=== PATIENT | female | born 1990 | race Caucasian/White ===

== ENCOUNTER 2016-12-08 07:37 | Day surgery (SDC) | payer MEDICARE, MEDICAID ==
[2016-12-08] MEDS ORDERED: Dextrose 5%-Lactated Ringers 1,000 ML IV SCH (08:00)
[2016-12-08] MEDS ORDERED: Glycopyrrolate 0.2 MG/ML 2 ML SYRINGE IVPUSH ONE (09:00)
[2016-12-08] MEDS ORDERED: Propofol 200 MG/20 ML SDV ONE (09:12)
[2016-12-08] MEDS ORDERED: fentaNYL 100 MCG/2 ML SDV ONE (09:12)
[2016-12-08] MEDS ORDERED: Midazolam 1 MG/ML 2 ML SDV ONE (09:12)
[2016-12-08] MEDS ORDERED: Pantoprazole 40 MG Vial IVPUSH ONE (10:50)
[2016-12-08 11:54] VITALS: BP 123/79
--- NOTE | 2016-12-10 17:25 | OR ---
DATE OF PROCEDURE: 12/08/2016 PREOPERATIVE DIAGNOSIS: Persistent nausea. POSTOPERATIVE DIAGNOSIS: Nausea associated with focal intense gastritis involving gastric body. OPERATIVE PROCEDURE: Upper GI endoscopy with biopsies of gastric antrum for CLOtest. ANESTHESIA: IV sedation. INDICATION FOR PROCEDURE: This is a 26-year-old female presenting with some ongoing nausea. This does not appear to be related to food intake, and the patient is not noted to have any secretory medications being taken. The plan is to proceed with upper GI endoscopy with biopsies as indicated. Potential risks including bleeding and perforation were discussed, and the patient wishes to proceed. DETAILS OF PROCEDURE: The patient was taken to the operating room and placed in a left lateral decubitus position. IV sedation was administered, after which the upper GI endoscope was passed orally through the length of the esophagus and into the stomach with retroflexion view of the fundus, and thereafter through the pyloric channel and into the proximal duodenum. Findings included normal hypopharynx, larynx, upper esophageal sphincter, and esophageal body. At the EG junction, no significant inflammation was noted nor was there any significant hiatal hernia. In the stomach, there were a few streaks of blood and within the body, there was a focal area of quite intense gastritis. This was not ulcerated, but it was reddened and quite friable. In general, there was less intense diffuse gastritis within the distal body and antrum. The pyloric channel and duodenum at the junction of the 3rd and 4th portions were unremarkable. At this point, biopsies were taken from the antrum and sent for CLOtest for H. pylori. Minimal bleeding from the biopsy site was seen and the procedure then concluded with removal of the scope. The patient will be given Protonix 40 mg given IV in the recovery room and then 40 mg daily, and she will be instructed to follow up with Keira Gillis at [facility] in 2 weeks. If the patient remains nauseated at this point, I would probably initiate a gallbladder workup perhaps starting with an ultrasound, and if that is negative, proceeding with a CCK-stimulated HIDA scan. Liu Leal MD /[id number]
== END 2016-12-08 12:00 | disposition home or self-care (01) ==
LOC: JP.SDS 07:37
PROVIDERS: ATTEND Surgery
DX: K29.50 Unspecified chronic gastritis without bleeding (principal); E78.5 Hyperlipidemia, unspecified; E66.9 Obesity, unspecified; Z88.8 Allergy status to other drugs, medicaments and biological substances; Z79.899 Other long term (current) drug therapy
CPT/HCPCS: 43239; 87081; C9113; J2250; J2704; J3010; J7042

== ENCOUNTER 2017-04-23 01:59 | Emergency (ER) | payer MEDICAID, MEDICARE, OTHER ==
[2017-04-23 02:24] VITALS: BP 134/95
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
== END 2017-04-23 04:07 | disposition home or self-care (01) ==
LOC: JP.ED 01:59
DX: T76.21XA Adult sexual abuse, suspected, initial encounter (principal); H54.7 Unspecified visual loss; J45.909 Unspecified asthma, uncomplicated; E66.9 Obesity, unspecified; F41.9 Anxiety disorder, unspecified; F31.9 Bipolar disorder, unspecified; Z88.8 Allergy status to other drugs, medicaments and biological substances; Z88.1 Allergy status to other antibiotic agents; Z79.899 Other long term (current) drug therapy; Z87.440 Personal history of urinary (tract) infections
CPT/HCPCS: 36415; 81001; 81025; 86593; 86701; 86702; 86780; 86803; 87210; 87340; 87491; 87591; 99285

== ENCOUNTER 2017-05-27 21:34 | Emergency (ER) | payer MEDICARE, MEDICAID ==
[2017-05-27 21:52] VITALS: BP 143/69
[2017-05-27] MEDS ORDERED: Sodium Chloride 0.9% 1,000 ML IV SCH (22:45)
[2017-05-27] MEDS ORDERED: Sodium Chloride 0.9% 10 ML Syringe FLUSH PRN (22:45)
[2017-05-27] MEDS ORDERED: diphenhydrAMINE 50 MG/ML SDV IVPUSH ONE (22:45)
[2017-05-27] MEDS ORDERED: Prochlorperazine 10 MG/2 ML SDV IVPUSH ONE (22:45)
[2017-05-27] MEDS ORDERED: HYDROmorphone 1 MG/ML Syringe IVPUSH ONE (22:46)
--- NOTE | 2017-05-27 22:51 | EDM.PDOC ---
ED HPI GENERAL MEDICAL PROBLEM - General Chief Complaint: Headache Stated Complaint: MIGRAINE Time Seen by Provider: 05/27/17 22:34 Source of Information: Reports: Patient History Limitations: Reports: No Limitations - History of Present Illness INITIAL COMMENTS - FREE TEXT/NARRATIVE: This patient comes in complaining of a severe headache. It's been going on for the last 6 days. This is similar to headaches she's had in the past. She has not vomited but feels very nauseated. She describes the pain as 10 out of 10. She said usually she gets headaches about every day but this one is just much worse. And she has had headaches like this in the past migraine Pain Score (Numeric/FACES): 8 - Related Data Allergies Allergy/AdvReac Type Severity Reaction Status Date / Time bupropion [From Wellbutrin] Allergy Seizure Verified 12/08/16 07:52 cephalexin monohydrate Allergy Hives Verified 12/08/16 07:52 [From Keflex] niacin Allergy Hives Verified 12/08/16 07:52 Home Meds: Home Meds Multivitamin [Multi Vitamin Daily] 1 cap PO DAILY 07/10/13 [History] Ondansetron [Zofran ODT] 4 mg PO Q6H PRN #8 tab.dis 07/10/13 [Rx] QUEtiapine [SEROquel] 200 mg PO BEDTIME 07/10/13 [History] Vitamin E [Formula E] 400 unit PO BEDTIME 07/10/13 [History] Cholecalciferol (Vitamin D3) [Vitamin D3] 5,000 unit PO BEDTIME 10/12/15 [ History] FLUoxetine [PROzac] 20 mg PO DAILY 10/12/15 [History] Levonorgestrel-Ethin Estradiol [Lessina] 1 each PO DAILY 10/12/15 [History] Montelukast Sodium [Singulair] 5 mg PO BEDTIME 05/21/16 [History] Melatonin 10 mg PO BEDTIME 12/06/16 [History] Naproxen [Take Home: Naproxen 500 MG, 4 Tab Pack] 500 mg PO BID 12/06/16 [ History] Vitamin B Complex [B Complex] 1 each PO BEDTIME 12/06/16 [History] Iron 65 mg PO BEDTIME 12/08/16 [History] Levonorgestrel-Ethin Estradiol [Lutera-28 Tablet] 1 tab PO BEDTIME 12/08/16 [ History] QUEtiapine [SEROquel] 200 mg PO BEDTIME 12/08/16 [History] Topiramate [Topiramate ER] 50 mg PO BEDTIME 12/08/16 [History] Past Medical History HEENT History: Reports: Impaired Vision Respiratory History: Reports: Asthma Gastrointestinal History: Reports: None Genitourinary History: Reports: UTI, Recurrent 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 History: Reports: 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 Uterine Bleeding, Other (See Below) Other OB/BYN History: ablation for heavy periods Musculoskeletal History: Reports: Fracture, Other (See Below) Other Musculoskeletal History: bunions Neurological History: Reports: Concussion, Headaches, Chronic, Seizure Psychiatric History: Reports: Anxiety, Bipolar, Depression, Developmental Delay , Panic Attack Endocrine/Metabolic History: Reports: Obesity/BMI 30+ Immunologic History: Reports: None Oncologic (Cancer) History: Reports: None Dermatologic History: Reports: Eczema, Other (See Below) Other Dermatologic History: acne - Infectious Disease History Infectious Disease History: Reports: None - Past Surgical History Head Surgeries/Procedures: Reports: None Respiratory Surgical History: Reports: None Female Surgical History: Reports: Other (See Below) Endocrine Surgical History: Reports: None Musculoskeletal Surgical History: Reports: Other (See Below) Dermatological Surgical History: Reports: Other (See Below) Social & Family History - Family History Family Medical History: Noncontributory - Tobacco Use Smoking Status *Q: Never Smoker Second Hand Smoke Exposure: No - Caffeine Use Caffeine Use: Reports: Coffee, Energy Drinks, Soda - Alcohol Use Days Per Week of Alcohol Use: 2 Number of Drinks Per Day: 2 Total Drinks Per Week: 4 - Recreational Drug Use Recreational Drug Use: No - Living Situation & Occupation Living situation: Reports: Single Occupation: Employed (lives alone with cat [address] in [place], [place]. works at [employer]) ED ROS GENERAL - Review of Systems Review Of Systems: ROS reveals no pertinent complaints other than HPI. - Physical Exam Exam: See Below Exam Limited By: No Limitations General Appearance: Alert, WD/WN, Mild Distress Eye Exam: Bilateral Eye: EOMI, PERRL Ears: Normal External Exam Throat/Mouth: Normal Inspection Head Exam: Atraumatic Neck: Normal Inspection Respiratory/Chest: Lungs Clear Cardiovascular: Regular Rate, Rhythm GI/Abdominal: Non-Tender Neuro Exam (Abbreviated): Alert, Oriented, CN II-XII Intact, Normal Cognition, No Motor/Sensory Deficits Extremities: Normal Inspection Psychiatric: Normal Affect Skin Exam: Warm, Dry Course - Vital Signs Last Recorded V/S: Last Vital Signs Temp 37.4 C 05/27/17 21:53 Pulse 97 05/27/17 21:53 Resp 16 05/27/17 21:53 BP 143/69 H 05/27/17 21:53 Pulse Ox 96 05/27/17 21:53 - Orders/Labs/Meds Orders: Active Orders 24 hr Category Date Time Status Sodium Chloride 0.9% [Normal Saline] 1,000 ml Med 05/27/17 22:45 Active IV ASDIRECTED Sodium Chloride 0.9% [Saline Flush] Med 05/27/17 22:45 Active 10 ml FLUSH ASDIRECTED PRN Saline Lock Insert [OM.PC] Urgent Oth 05/27/17 22:45 Ordered Medication Orders Sodium Chloride (Normal Saline) 1,000 mls @ 999 mls/hr IV ASDIRECTED TRAVIS Last Admin: 05/27/17 23:02 Dose: 999 mls/hr Sodium Chloride (Saline Flush) 10 ml FLUSH ASDIRECTED PRN PRN Reason: Keep Vein Open Last Admin: 05/27/17 23:09 Dose: 10 ml Meds: Medications Generic Name Dose Route Start Last Admin Trade Name Freq PRN Reason Stop Dose Admin Sodium Chloride 1,000 mls @ 999 mls/hr 05/27/17 22:45 05/27/17 23:02 Normal Saline IV 999 mls/hr ASDIRECTED TRAVIS Administration Sodium Chloride 10 ml 05/27/17 22:45 05/27/17 23:09 Saline Flush FLUSH 10 ml ASDIRECTED PRN Administration Keep Vein Open Discontinued Medications Generic Name Dose Route Start Last Admin Trade Name Freq PRN Reason Stop Dose Admin Diphenhydramine HCl 25 mg 05/27/17 22:45 05/27/17 23:04 Benadryl IVPUSH 05/27/17 22:46 25 mg ONETIME ONE Administration Hydromorphone HCl 1 mg 05/27/17 22:46 05/27/17 23:07 Dilaudid IVPUSH 05/27/17 22:47 1 mg ONETIME ONE Administration Prochlorperazine Edisylate 10 mg 05/27/17 22:45 05/27/17 23:06 Compazine IVPUSH 05/27/17 22:46 10 mg ONETIME ONE Administration - Re-Assessments/Exams Free Text/Narrative Re-Assessment/Exam: 05/28/17 00:09 This patient received 1 L IV normal saline Compazine 10 mg plus Benadryl 25 mg IV and Dilaudid 1 mg IV. After the fluids were in she had gotten good relief from her headache. Departure - Departure Time of Disposition: 00:09 Disposition: Home, Self-Care 01 Condition: Fair Clinical Impression: Migraine - Discharge Information Referrals: Keira Gillis PA [Primary Care Provider] - Forms: ED Department Discharge Additional Instructions: Go home and go straight to bed and get a good night sleep. The medication he received will make you very sleepy. This will last at least 12 hours so don't plan to do anything for at least the next 12 hours were sedation could be a problem. - My Orders Last 24 Hours: My Active Orders 05/27/17 22:45 Sodium Chloride 0.9% [Normal Saline] 1,000 ml IV ASDIRECTED Sodium Chloride 0.9% [Saline Flush] 10 ml FLUSH ASDIRECTED PRN Saline Lock Insert [OM.PC] Urgent - Assessment/Plan Last 24 Hours: My Active Orders 05/27/17 22:45 Sodium Chloride 0.9% [Normal Saline] 1,000 ml IV ASDIRECTED Sodium Chloride 0.9% [Saline Flush] 10 ml FLUSH ASDIRECTED PRN Saline Lock Insert [OM.PC] Urgent
== END 2017-05-28 00:12 | disposition home or self-care (01) ==
LOC: JP.ED 21:34
DX: G43.909 Migraine, unspecified, not intractable, without status migrainosus (principal); J45.909 Unspecified asthma, uncomplicated; E66.9 Obesity, unspecified; F41.9 Anxiety disorder, unspecified; F31.9 Bipolar disorder, unspecified; Z87.440 Personal history of urinary (tract) infections; Z79.899 Other long term (current) drug therapy; Z88.1 Allergy status to other antibiotic agents; Z88.8 Allergy status to other drugs, medicaments and biological substances
CPT/HCPCS: 96361; 96374; 96375; 99283; J0780; J1170; J1200; J7040; J7050

== ENCOUNTER 2017-06-01 17:42 | Emergency (ER) | payer MEDICARE, MEDICAID ==
[2017-06-01 18:11] VITALS: BP 152/92
[2017-06-01] MEDS ORDERED: Sodium Chloride 0.9% 10 ML Syringe FLUSH PRN (18:57)
[2017-06-01] MEDS ORDERED: Ketorolac 30 MG/ML SDV IVPUSH ONE (18:57)
[2017-06-01] MEDS ORDERED: diphenhydrAMINE 50 MG/ML SDV IVPUSH ONE (18:57)
[2017-06-01] MEDS ORDERED: Sodium Chloride 0.9% 1,000 ML IV ONE (18:57)
[2017-06-01] MEDS ORDERED: Prochlorperazine 10 MG/2 ML SDV IVPUSH ONE (18:57)
--- NOTE | 2017-06-01 19:01 | EDM.PDOC ---
ED HPI GENERAL MEDICAL PROBLEM - General Chief Complaint: Headache Stated Complaint: MIGRAINE Time Seen by Provider: 06/01/17 18:50 Source of Information: Reports: Patient, Old Records, RN Notes Reviewed History Limitations: Reports: No Limitations - History of Present Illness INITIAL COMMENTS - FREE TEXT/NARRATIVE: 26-year-old female presents emergency department day complaint of headache, she states she has a history of migraines is only using Excedrin for an abortive medication and Topamax for preventative medication she was evaluated in the emergency department 5 days prior with a similar complaint treatment at that time did bring some resolution to her headache but it has returned she's been dealing with this headache on and off now for about 2 weeks, she has photophobia and nausea - Related Data Allergies Allergy/AdvReac Type Severity Reaction Status Date / Time bupropion [From Wellbutrin] Allergy Seizure Verified 12/08/16 07:52 cephalexin monohydrate Allergy Hives Verified 12/08/16 07:52 [From Keflex] niacin Allergy Hives Verified 12/08/16 07:52 Home Meds: Home Meds Multivitamin [Multi Vitamin Daily] 1 cap PO DAILY 07/10/13 [History] Ondansetron [Zofran ODT] 4 mg PO Q6H PRN #8 tab.dis 07/10/13 [Rx] QUEtiapine [SEROquel] 200 mg PO BEDTIME 07/10/13 [History] Vitamin E [Formula E] 400 unit PO BEDTIME 07/10/13 [History] Cholecalciferol (Vitamin D3) [Vitamin D3] 5,000 unit PO BEDTIME 10/12/15 [ History] FLUoxetine [PROzac] 20 mg PO DAILY 10/12/15 [History] Levonorgestrel-Ethin Estradiol [Lessina] 1 each PO DAILY 10/12/15 [History] Montelukast Sodium [Singulair] 5 mg PO BEDTIME 05/21/16 [History] Melatonin 10 mg PO BEDTIME 12/06/16 [History] Naproxen [Take Home: Naproxen 500 MG, 4 Tab Pack] 500 mg PO BID 12/06/16 [ History] Vitamin B Complex [B Complex] 1 each PO BEDTIME 12/06/16 [History] Iron 65 mg PO BEDTIME 12/08/16 [History] Levonorgestrel-Ethin Estradiol [Lutera-28 Tablet] 1 tab PO BEDTIME 12/08/16 [ History] QUEtiapine [SEROquel] 200 mg PO BEDTIME 12/08/16 [History] Topiramate [Topiramate ER] 50 mg PO BEDTIME 12/08/16 [History] Past Medical History HEENT History: Reports: Impaired Vision Respiratory History: Reports: Asthma Genitourinary History: Reports: UTI, Recurrent 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: 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 Uterine Bleeding, Other (See Below) Other OB/BYN History: ablation for heavy periods Musculoskeletal History: Reports: Fracture, Other (See Below) Other Musculoskeletal History: bunions Neurological History: Reports: Concussion, Headaches, Chronic, Seizure Psychiatric History: Reports: Anxiety, Bipolar, Depression, Developmental Delay , Panic Attack Endocrine/Metabolic History: Reports: Obesity/BMI 30+ Immunologic History: Reports: None Oncologic (Cancer) History: Reports: None Dermatologic History: Reports: Eczema, Other (See Below) Other Dermatologic History: acne - Infectious Disease History Infectious Disease History: Reports: None - Past Surgical History Head Surgeries/Procedures: Reports: None Respiratory Surgical History: Reports: None Female Surgical History: Reports: Other (See Below) Endocrine Surgical History: Reports: None Musculoskeletal Surgical History: Reports: Other (See Below) Dermatological Surgical History: Reports: Other (See Below) Social & Family History - Family History Family Medical History: Noncontributory - Tobacco Use Smoking Status *Q: Never Smoker Second Hand Smoke Exposure: No - Caffeine Use Caffeine Use: Reports: None - Alcohol Use Days Per Week of Alcohol Use: 2 Number of Drinks Per Day: 2 Total Drinks Per Week: 4 - Recreational Drug Use Recreational Drug Use: No - Living Situation & Occupation Living situation: Reports: Single Occupation: Employed (lives alone with cat at [address] in [place], [place]. works at [employer]) ED ROS GENERAL - Review of Systems Review Of Systems: See Below Constitutional: Reports: No Symptoms HEENT: Reports: Other (Photophobia) Respiratory: Reports: No Symptoms Cardiovascular: Reports: No Symptoms GI/Abdominal: Reports: Nausea Musculoskeletal: Reports: No Symptoms Skin: Reports: No Symptoms Neurological: Reports: Headache - Physical Exam Exam: See Below Exam Limited By: No Limitations General Appearance: Alert, WD/WN, No Apparent Distress Eye Exam: Bilateral Eye: Normal Fundi, Normal Inspection Ears: Normal External Exam Nose: Normal Inspection Throat/Mouth: Normal Inspection Head Exam: Atraumatic, Normocephalic Neck: Normal Inspection, Supple, Non-Tender, Full Range of Motion Course - Vital Signs Last Recorded V/S: Last Vital Signs Temp 99 F 06/01/17 18:31 Pulse 107 H 06/01/17 18:31 Resp 18 06/01/17 18:31 BP 152/92 H 06/01/17 18:31 Pulse Ox 93 L 06/01/17 18:31 - Orders/Labs/Meds Orders: Active Orders 24 hr Category Date Time Status Peripheral IV Care [RC] . DIRECTED Care 06/01/17 18:57 Active Sodium Chloride 0.9% [Saline Flush] Med 06/01/17 18:57 Active 10 ml FLUSH ASDIRECTED PRN Peripheral IV Insertion Adult [OM.PC] Urgent Oth 06/01/17 18:57 Ordered Medication Orders Sodium Chloride (Saline Flush) 10 ml FLUSH ASDIRECTED PRN PRN Reason: Keep Vein Open Last Admin: 06/01/17 19:13 Dose: 10 ml Meds: Medications Generic Name Dose Route Start Last Admin Trade Name Freq PRN Reason Stop Dose Admin Sodium Chloride 10 ml 06/01/17 18:57 06/01/17 19:13 Saline Flush FLUSH 10 ml ASDIRECTED PRN Administration Keep Vein Open Discontinued Medications Generic Name Dose Route Start Last Admin Trade Name Freq PRN Reason Stop Dose Admin Diphenhydramine HCl 50 mg 06/01/17 18:57 06/01/17 19:15 Benadryl IVPUSH 06/01/17 18:58 50 mg ONETIME ONE Administration Sodium Chloride 1,000 mls @ 999 mls/hr 06/01/17 18:57 06/01/17 19:14 Normal Saline IV 06/01/17 19:57 999 mls/hr .BOLUS ONE Administration Ketorolac Tromethamine 30 mg 06/01/17 18:57 06/01/17 19:14 Toradol IVPUSH 06/01/17 18:58 30 mg ONETIME ONE Administration Prochlorperazine Edisylate 5 mg 06/01/17 18:57 06/01/17 19:15 Compazine IVPUSH 06/01/17 18:58 5 mg ONETIME ONE Administration Departure - Departure Time of Disposition: 20:35 Disposition: Home, Self-Care 01 Condition: Good Clinical Impression: Migraine - Discharge Information Referrals: Keira Gillis PA [Primary Care Provider] - Forms: ED Department Discharge Additional Instructions: Use the migraine medication as needed with the start of a migraine, Please followup with your primary care provider in 3-5 days if not better, please call return to the emergency department with worsening of symptoms. - My Orders Last 24 Hours: My Active Orders 06/01/17 18:57 Peripheral IV Care [RC] . DIRECTED Sodium Chloride 0.9% [Saline Flush] 10 ml FLUSH ASDIRECTED PRN Peripheral IV Insertion Adult [OM.PC] Urgent - Assessment/Plan Last 24 Hours: My Active Orders 06/01/17 18:57 Peripheral IV Care [RC] . DIRECTED Sodium Chloride 0.9% [Saline Flush] 10 ml FLUSH ASDIRECTED PRN Peripheral IV Insertion Adult [OM.PC] Urgent Plan: Assessment Acuity = acute Site and laterality = migraine type headache Etiology = unclear etiology Manifestations = none Location of injury = Home Lab values = none Plan She had excellent improvement combination lactated Ringer's, Benadryl, Toradol and Compazine, prescription written for Imitrex 25 mg 1 tablet as needed for migraine, her follow-up with her primary care 3-5 days for reevaluation Patient was in agreement with the plan all questions were answered, they were instructed to return to the emergency department or call for worsening symptoms. This note was dictated using I[employer] voice recognition software please call with any questions.
== END 2017-06-01 20:44 | disposition home or self-care (01) ==
LOC: JP.ED 17:42
DX: G43.909 Migraine, unspecified, not intractable, without status migrainosus (principal); J45.909 Unspecified asthma, uncomplicated; F31.9 Bipolar disorder, unspecified; E66.9 Obesity, unspecified; Z68.39 Body mass index [BMI] 39.0-39.9, adult; Z87.440 Personal history of urinary (tract) infections; Z79.899 Other long term (current) drug therapy; Z88.1 Allergy status to other antibiotic agents; Z88.8 Allergy status to other drugs, medicaments and biological substances
CPT/HCPCS: 96361; 96374; 96375; 99284; J0780; J1200; J1885; J7040; J7050; 99283

== ENCOUNTER 2017-06-25 17:43 | Emergency (ER) | payer MEDICARE, MEDICAID ==
[2017-06-25 18:52] VITALS: BP 134/86
--- NOTE | 2017-06-25 19:02 | EDM.PDOC ---
ED HPI GENERAL MEDICAL PROBLEM - General Chief Complaint: Respiratory Problem Stated Complaint: COUGHING,VOMITING Time Seen by Provider: 06/25/17 18:58 Source of Information: Reports: Patient History Limitations: Reports: No Limitations - History of Present Illness INITIAL COMMENTS - FREE TEXT/NARRATIVE: With cough x 2 weeks. Now with sore throat, cough. With fever intermittently. Throwing up from coughing so hard. Has noted wheezing today. Does not smoke. Does have inhaler at home. Not using it. Cough seems worse at night. Onset: Gradual Onset Date: 06/11/17 Duration: Intermittent Severity: Mild Improves with: Reports: None Worsens with: Reports: None Associated Symptoms: Reports: Cough, Fever/Chills, Nausea/Vomiting - Related Data Allergies Allergy/AdvReac Type Severity Reaction Status Date / Time bupropion [From Wellbutrin] Allergy Seizure Verified 06/25/17 18:40 cephalexin monohydrate Allergy Hives Verified 06/25/17 18:40 [From Keflex] niacin Allergy Hives Verified 06/25/17 18:40 Home Meds: Home Meds Multivitamin [Multi Vitamin Daily] 1 cap PO DAILY 07/10/13 [History] Ondansetron [Zofran ODT] 4 mg PO Q6H PRN #8 tab.dis 07/10/13 [Rx] Vitamin E [Formula E] 400 unit PO BEDTIME 07/10/13 [History] Cholecalciferol (Vitamin D3) [Vitamin D3] 5,000 unit PO BEDTIME 10/12/15 [ History] FLUoxetine [PROzac] 20 mg PO DAILY 10/12/15 [History] Montelukast Sodium [Singulair] 5 mg PO BEDTIME 05/21/16 [History] Melatonin 10 mg PO BEDTIME 12/06/16 [History] Naproxen [Take Home: Naproxen 500 MG, 4 Tab Pack] 500 mg PO BID 12/06/16 [ History] Vitamin B Complex [B Complex] 1 each PO BEDTIME 12/06/16 [History] Iron 65 mg PO BEDTIME 12/08/16 [History] Levonorgestrel-Ethin Estradiol [Lutera-28 Tablet] 1 tab PO BEDTIME 12/08/16 [ History] QUEtiapine [SEROquel] 200 mg PO BEDTIME 12/08/16 [History] Topiramate [Topiramate ER] 50 mg PO BEDTIME 12/08/16 [History] Past Medical History HEENT History: Reports: Impaired Vision Respiratory History: Reports: Asthma Gastrointestinal History: Reports: None Genitourinary History: Reports: UTI, Recurrent 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: 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 Uterine Bleeding, Other (See Below) Other OB/BYN History: ablation for heavy periods Musculoskeletal History: Reports: Fracture, Other (See Below) Other Musculoskeletal History: bunions Neurological History: Reports: Concussion, Headaches, Chronic, Seizure Psychiatric History: Reports: Anxiety, Bipolar, Depression, Developmental Delay , Panic Attack Endocrine/Metabolic History: Reports: Obesity/BMI 30+ Immunologic History: Reports: None Oncologic (Cancer) History: Reports: None Dermatologic History: Reports: Eczema, Other (See Below) Other Dermatologic History: acne - Infectious Disease History Infectious Disease History: Reports: None - Past Surgical History Head Surgeries/Procedures: Reports: None Respiratory Surgical History: Reports: None Female Surgical History: Reports: Other (See Below) Endocrine Surgical History: Reports: None Musculoskeletal Surgical History: Reports: Other (See Below) Dermatological Surgical History: Reports: Other (See Below) Social & Family History - Family History Family Medical History: Noncontributory - Tobacco Use Smoking Status *Q: Never Smoker Second Hand Smoke Exposure: No - Caffeine Use Caffeine Use: Reports: None - Alcohol Use Days Per Week of Alcohol Use: 2 Number of Drinks Per Day: 2 Total Drinks Per Week: 4 - Recreational Drug Use Recreational Drug Use: No - Living Situation & Occupation Living situation: Reports: Single Occupation: Employed (lives alone with cat at [address] in [place], [place]. works at [employer]) ED ROS GENERAL - Review of Systems Review Of Systems: See Below Constitutional: Reports: Fever, Chills HEENT: Reports: Sinus Problem, Throat Pain Respiratory: Reports: Wheezing, Cough, Sputum Cardiovascular: Reports: No Symptoms ED EXAM, GENERAL - Physical Exam Exam: See Below Exam Limited By: Intoxication General Appearance: Alert, WD/WN, No Apparent Distress Ears: Normal External Exam, Normal Canal, Hearing Grossly Normal, Normal TMs Nose: Normal Inspection, Normal Mucosa, No Blood Throat/Mouth: Normal Inspection, Normal Lips, Normal Teeth, Normal Gums, Normal Oropharynx, Normal Voice, No Airway Compromise Head: Atraumatic, Normocephalic Neck: Normal Inspection, Supple, Non-Tender, Full Range of Motion Respiratory/Chest: No Respiratory Distress, Lungs Clear, Normal Breath Sounds, No Accessory Muscle Use, Chest Non-Tender Cardiovascular: Normal Peripheral Pulses, Regular Rate, Rhythm, No Edema, No Gallop, No JVD, No Murmur, No Rub GI/Abdominal: Normal Bowel Sounds, Soft, Non-Tender, No Organomegaly, No Distention, No Abnormal Bruit, No Mass Course - Vital Signs Last Recorded V/S: Last Vital Signs Temp 99.4 F 06/25/17 18:49 Pulse 86 06/25/17 18:49 Resp 14 06/25/17 18:49 BP 134/86 06/25/17 18:49 Pulse Ox 98 06/25/17 18:49 - Orders/Labs/Meds Labs: Laboratory Tests 06/25/17 06/25/17 Range/Units 19:25 19:25 WBC 7.4 (4.5-11.0) K/uL RBC 5.12 (3.30-5.50) M/uL Hgb 14.5 (12.0-15.0) g/dL Hct 42.2 (36.0-48.0) % MCV 82 (80-98) fL MCH 28 (27-31) pg MCHC 34 (32-36) % Plt Count 347 (150-400) K/uL Neut % (Auto) 56 (36-66) % Lymph % (Auto) 26 (24-44) % [place] % (Auto) 10 H (2-6) % Eos % (Auto) 7 H (2-4) % Baso % (Auto) 1 (0-1) % Sodium 141 (140-148) mmol/L Potassium 4.0 (3.6-5.2) mmol/L Chloride 106 (100-108) mmol/L Carbon Dioxide 25 (21-32) mmol/L Anion Gap 10.4 (5.0-14.0) mmol/L BUN 10 (7-18) mg/dL Creatinine 0.7 (0.6-1.0) mg/dL Est Cr Clr Drug Dosing 97.17 mL/min Estimated GFR (MDRD) > 60 (>60) Glucose 90 (74-106) mg/dL Calcium 9.0 (8.5-10.1) mg/dL Departure - Departure Time of Disposition: 19:51 Disposition: Home, Self-Care 01 Condition: Good Clinical Impression: Viral URI - Discharge Information Instructions: Upper Respiratory Infection, Adult, [id number] Referrals: Keira Gillis PA [Primary Care Provider] - Forms: ED Department Discharge Additional Instructions: Labs indicate viral illness. No sign of dehydration on labs. Pt to use supportive measures at home. Discussed limiting alcohol use. Followup if symptoms worsen. - Problem List & Annotations (1) Viral URI SNOMED Code(s): 731125488 Code(s): J06.9 - ACUTE UPPER RESPIRATORY INFECTION, UNSPECIFIED; B97.89 - OTH VIRAL AGENTS THE CAUSE OF DISEASES CLASSD [id number] Status: Acute Priority: Low Current Visit: Yes
== END 2017-06-25 20:00 | disposition home or self-care (01) ==
LOC: JP.ED 17:43
DX: J06.9 Acute upper respiratory infection, unspecified (principal); J45.909 Unspecified asthma, uncomplicated; F31.9 Bipolar disorder, unspecified; F41.0 Panic disorder [episodic paroxysmal anxiety]; E66.9 Obesity, unspecified; Z87.440 Personal history of urinary (tract) infections; Z79.899 Other long term (current) drug therapy; Z88.1 Allergy status to other antibiotic agents; Z88.8 Allergy status to other drugs, medicaments and biological substances; Z68.42 Body mass index [BMI] 45.0-49.9, adult
CPT/HCPCS: 36415; 80048; 85025; 99283; 99284

== ENCOUNTER 2017-09-13 18:19 | Emergency (ER) | payer MEDICARE, MEDICAID ==
[2017-09-13 18:31] VITALS: BP 152/92
[2017-09-13] MEDS ORDERED: Ketorolac 60 MG/2 ML SDV IM ONE (18:42)
--- NOTE | 2017-09-13 18:45 | EDM.PDOC ---
ED HPI GENERAL MEDICAL PROBLEM - General Chief Complaint: Headache Stated Complaint: MIGRAINE Time Seen by Provider: 09/13/17 18:35 Source of Information: Reports: Patient History Limitations: Reports: No Limitations - History of Present Illness INITIAL COMMENTS - FREE TEXT/NARRATIVE: 27-year-old female who is in with her boyfriend, both have headaches. She says she has had her headache for "one month". She takes Excedrin occasionally which usually helps but today it didn't. No aura, no nausea or vomiting, no fever, no cold symptoms, no visual complaints and she actually looks entirely comfortable. Vitals are normal. Headache is generalized, she can't pinpoint one side or the other, front or back. Onset: Unknown/Unsure Severity: Mild - Related Data Allergies Allergy/AdvReac Type Severity Reaction Status Date / Time bupropion [From Wellbutrin] Allergy Seizure Verified 09/13/17 18:31 cephalexin monohydrate Allergy Hives Verified 09/13/17 18:31 [From Keflex] niacin Allergy Hives Verified 09/13/17 18:31 Home Meds: Home Meds Multivitamin [Multi Vitamin Daily] 1 cap PO DAILY 07/10/13 [History] Ondansetron [Zofran ODT] 4 mg PO Q6H PRN #8 tab.dis 07/10/13 [Rx] Vitamin E [Formula E] 400 unit PO BEDTIME 07/10/13 [History] Cholecalciferol (Vitamin D3) [Vitamin D3] 5,000 unit PO BEDTIME 10/12/15 [ History] FLUoxetine [PROzac] 20 mg PO DAILY 10/12/15 [History] Montelukast Sodium [Singulair] 5 mg PO BEDTIME 05/21/16 [History] Melatonin 10 mg PO BEDTIME 12/06/16 [History] Vitamin B Complex [B Complex] 1 each PO BEDTIME 12/06/16 [History] Iron 65 mg PO BEDTIME 12/08/16 [History] Levonorgestrel-Ethin Estradiol [Lutera-28 Tablet] 1 tab PO BEDTIME 12/08/16 [ History] QUEtiapine [SEROquel] 200 mg PO BEDTIME 12/08/16 [History] Topiramate [Topiramate ER] 50 mg PO BEDTIME 12/08/16 [History] Vitamin A 10,000 unit PO DAILY 09/13/17 [History] Past Medical History HEENT History: Reports: Impaired Vision Respiratory History: Reports: Asthma Gastrointestinal History: Reports: None Genitourinary History: Reports: UTI, Recurrent 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 Uterine Bleeding, Other (See Below) Other OB/BYN History: ablation for heavy periods Musculoskeletal History: Reports: Fracture, Other (See Below) Other Musculoskeletal History: bunions Neurological History: Reports: Concussion, Headaches, Chronic, Seizure Psychiatric History: Reports: Anxiety, Bipolar, Depression, Developmental Delay , Panic Attack Endocrine/Metabolic History: Reports: Obesity/BMI 30+ Immunologic History: Reports: None Oncologic (Cancer) History: Reports: None Dermatologic History: Reports: Eczema, Other (See Below) Other Dermatologic History: acne - Infectious Disease History Infectious Disease History: Reports: None - Past Surgical History Head Surgeries/Procedures: Reports: None Respiratory Surgical History: Reports: None Female Surgical History: Reports: Other (See Below) Dermatological Surgical History: Reports: Other (See Below) Social & Family History - Family History Family Medical History: Noncontributory - Tobacco Use Smoking Status *Q: Never Smoker Second Hand Smoke Exposure: No - Caffeine Use Caffeine Use: Reports: None - Alcohol Use Days Per Week of Alcohol Use: 2 Number of Drinks Per Day: 2 Total Drinks Per Week: 4 - Recreational Drug Use Recreational Drug Use: No - Living Situation & Occupation Living situation: Reports: Single Occupation: Employed (lives alone with cat at [address] in [place], [place]. works at [employer] [place]) ED ROS GENERAL - Review of Systems Review Of Systems: See Below Constitutional: Denies: Fever, Chills, Malaise HEENT: Denies: Vision Change Respiratory: Reports: Cough (She does have a lingering cough for several days). Denies: Shortness of Breath Cardiovascular: Denies: Chest Pain GI/Abdominal: Denies: Abdominal Pain, Nausea, Vomiting Skin: Reports: No Symptoms Neurological: Reports: Headache - Physical Exam Exam: See Below Exam Limited By: No Limitations General Appearance: Alert, No Apparent Distress Eye Exam: Bilateral Eye: Normal Inspection Head Exam: Atraumatic Respiratory/Chest: No Respiratory Distress, Lungs Clear Neuro Exam (Abbreviated): Alert, Oriented, No Motor/Sensory Deficits Course - Vital Signs Last Recorded V/S: Last Vital Signs Temp 99.2 F 09/13/17 18:35 Pulse 109 H 09/13/17 18:35 Resp 16 09/13/17 18:35 BP 152/92 H 09/13/17 18:35 Pulse Ox 97 09/13/17 18:35 - Orders/Labs/Meds Meds: Medications Discontinued Medications Generic Name Dose Route Start Last Admin Trade Name Yvette PRN Reason Stop Dose Admin Ketorolac Tromethamine 60 mg 09/13/17 18:42 09/13/17 18:54 Toradol IM 09/13/17 18:43 60 mg ONETIME ONE Administration - Re-Assessments/Exams Free Text/Narrative Re-Assessment/Exam: 09/13/17 18:44 Patient was given an injection of Toradol 60 mg IM. She should follow-up with her primary provider to discuss her chronic headaches and discuss any other further treatment options or investigation necessary. Departure - Departure Time of Disposition: 19:03 Disposition: Home, Self-Care 01 Condition: Fair Clinical Impression: Tension-type headache - Discharge Information Instructions: Migraine Headache, [id number] Referrals: Keira Gillis PA [Primary Care Provider] - Forms: ED Department Discharge
== END 2017-09-13 19:03 | disposition home or self-care (01) ==
LOC: JP.ED 18:19
DX: G44.209 Tension-type headache, unspecified, not intractable (principal); F41.0 Panic disorder [episodic paroxysmal anxiety]; F31.9 Bipolar disorder, unspecified; Z79.899 Other long term (current) drug therapy; Z88.1 Allergy status to other antibiotic agents; Z88.8 Allergy status to other drugs, medicaments and biological substances
CPT/HCPCS: 96372; 99284; J1885; 99283

== ENCOUNTER 2017-10-18 09:13 | Emergency (ER) | payer MEDICARE, MEDICAID ==
[2017-10-18 09:37] VITALS: BP 140/84
[2017-10-18] MEDS ORDERED: Ketorolac 60 MG/2 ML SDV IM ONE (10:05)
--- NOTE | 2017-10-18 10:14 | EDM.PDOC ---
ED HPI GENERAL MEDICAL PROBLEM - General Chief Complaint: Back Pain or Injury Stated Complaint: FALL & HURT BACK Time Seen by Provider: 10/18/17 10:00 Source of Information: Reports: Patient, RN History Limitations: Reports: No Limitations - History of Present Illness INITIAL COMMENTS - FREE TEXT/NARRATIVE: 27 yo female frequent visitor to the ER presents with back pain after a fall 2 days ago on the ice. Says she landed on her left side. Is using a muscle relaxer she got previously in the clinic without relief. 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 Says she has today off. Pain is to the entire back. Has not been to the clinic. No weakness or numbness of her lower extrems. No hx of back problems. Onset: Sudden Onset Date: 10/16/17 Duration: Day(s):, Constant Location: Reports: Back Quality: Reports: Ache Severity: Moderate Improves with: Reports: Rest Worsens with: Reports: Movement Context: Reports: Trauma Associated Symptoms: Reports: No Other Symptoms Treatments [employer]: Reports: Other (see below) (muscle relaxer) Back Pain Score (Numeric/FACES): 10 - Related Data Allergies Allergy/AdvReac Type Severity Reaction Status Date / Time bupropion [From Wellbutrin] Allergy Seizure Verified 10/18/17 09:32 cephalexin monohydrate Allergy Hives Verified 10/18/17 09:32 [From Keflex] niacin Allergy Hives Verified 10/18/17 09:32 Home Meds: Home Meds Multivitamin [Multi Vitamin Daily] 1 cap PO DAILY 07/10/13 [History] Ondansetron [Zofran ODT] 4 mg PO Q6H PRN #8 tab.dis 07/10/13 [Rx] Vitamin E [Formula E] 400 unit PO BEDTIME 07/10/13 [History] Cholecalciferol (Vitamin D3) [Vitamin D3] 5,000 unit PO BEDTIME 10/12/15 [ History] FLUoxetine [PROzac] 20 mg PO DAILY 10/12/15 [History] Montelukast Sodium [Singulair] 5 mg PO BEDTIME 05/21/16 [History] Melatonin 10 mg PO BEDTIME 12/06/16 [History] Vitamin B Complex [B Complex] 1 each PO BEDTIME 12/06/16 [History] Iron 65 mg PO BEDTIME 12/08/16 [History] Levonorgestrel-Ethin Estradiol [Lutera-28 Tablet] 1 tab PO BEDTIME 12/08/16 [ History] QUEtiapine [SEROquel] 200 mg PO BEDTIME 12/08/16 [History] Topiramate [Topiramate ER] 50 mg PO BEDTIME 12/08/16 [History] Vitamin A 10,000 unit PO DAILY 09/13/17 [History] Ibuprofen 600 mg PO Q6H PRN #24 tablet 10/18/17 [Rx] Past Medical History HEENT History: Reports: Impaired Vision Respiratory History: Reports: Asthma Gastrointestinal History: Reports: None Genitourinary History: Reports: UTI, Recurrent [employer] History: Reports: 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 Uterine Bleeding, Endometrial Ablation, Other (See Below) Other OB/BYN History: heavy periods Musculoskeletal History: Reports: Fracture, Other (See Below) Other Musculoskeletal History: bunions. toe nail removal Neurological History: Reports: Concussion, Headaches, Chronic, Migraines, Seizure Psychiatric History: Reports: Anxiety, Bipolar, Depression, Developmental Delay , Panic Attack Endocrine/Metabolic History: Reports: Obesity/BMI 30+ Immunologic History: Reports: None Oncologic (Cancer) History: Reports: None Dermatologic History: Reports: Eczema, Other (See Below) Other Dermatologic History: acne - Infectious Disease History Infectious Disease History: Reports: None - Past Surgical History HEENT Surgical History: Reports: Tonsillectomy Respiratory Surgical History: Reports: None Social & Family History - Family History Family Medical History: Noncontributory - Tobacco Use Smoking Status *Q: Never Smoker Second Hand Smoke Exposure: No - Caffeine Use Caffeine Use: Reports: None - Alcohol Use Days Per Week of Alcohol Use: 2 Number of Drinks Per Day: 2 Total Drinks Per Week: 4 - Recreational Drug Use Recreational Drug Use: No - Living Situation & Occupation Living situation: Reports: Single Occupation: Employed (lives alone with cat [address] in [place], [place]. works at [employer]) ED ROS GENERAL - Review of Systems Review Of Systems: See Below Constitutional: Reports: No Symptoms HEENT: Reports: No Symptoms Respiratory: Reports: No Symptoms Cardiovascular: Reports: No Symptoms GI/Abdominal: Reports: No Symptoms : Reports: No Symptoms Musculoskeletal: Reports: Back Pain Skin: Reports: No Symptoms Neurological: Reports: No Symptoms ED EXAM,LOWER BACK PAIN/INJURY - Physical Exam Exam: See Below Exam Limited By: No Limitations General Appearance: Alert, No Apparent Distress, Obese Eye Exam: Bilateral Eye: Normal Inspection Ears: Normal External Exam, Normal Canal, Hearing Grossly Normal Nose: Normal Inspection, Normal Mucosa, No Blood Throat/Mouth: Normal Inspection, Normal Lips, Normal Voice, No Airway Compromise Head: Atraumatic, Normocephalic Neck: Normal Inspection, Supple Respiratory/Chest: No Respiratory Distress, Lungs Clear, No Accessory Muscle Use Cardiovascular: Regular Rate, Rhythm Back Exam: Normal Inspection, Full Range of Motion. No: CVA Tenderness (R), CVA Tenderness (L), Decreased Range of Motion, Muscle Spasm, Paraspinal Tenderness, Vertebral Tenderness Extremities: Normal Inspection, Normal Range of Motion, Non-Tender, No Pedal Edema Neurological: Alert, Normal Mood/Affect, Normal Dorsiflexion, CN II-XII Intact, No Motor/Sensory Deficits, Oriented x 3 Psychiatric: Normal Affect, Normal Mood Skin Exam: Warm, Dry, Intact, Normal Color, No Rash Course - Vital Signs Text/Narrative:: Toradol 60 mg IM Last Recorded V/S: Last Vital Signs Temp 35.7 C 10/18/17 09:42 Pulse 87 10/18/17 09:42 Resp 14 10/18/17 09:42 BP 140/84 10/18/17 09:42 Pulse Ox 97 10/18/17 09:42 - Orders/Labs/Meds Meds: Medications Discontinued Medications Generic Name Dose Route Start Last Admin Trade Name Freq PRN Reason Stop Dose Admin Ketorolac Tromethamine 60 mg 10/18/17 10:05 Toradol IM 10/18/17 10:06 ONETIME ONE Departure - Departure Time of Disposition: 10:20 Disposition: Home, Self-Care 01 Condition: Good Clinical Impression: Back strain Qualifiers: Encounter type: initial encounter Qualified Code(s): S39.012A - Strain of muscle, fascia and tendon of lower back, initial encounter - Discharge Information Prescriptions: Ibuprofen 600 mg PO Q6H PRN #24 tablet PRN Reason: Pain Referrals: Keira Gillis PA [Primary Care Provider] - Forms: ED Department Discharge, ED Return to Work/School Form Additional Instructions: Take ibuprofen 600 mg every 6 hrs with food for pain relief. May add acetaminophen 1000 mg every 6 hrs for added relief. Avoid heavy lifting for a few more days. Recheck with your provider if not improving.
== END 2017-10-18 10:24 | disposition home or self-care (01) ==
LOC: JP.ED 09:13
DX: S39.012A Strain of muscle, fascia and tendon of lower back, initial encounter (principal); J45.909 Unspecified asthma, uncomplicated; Z88.1 Allergy status to other antibiotic agents; Z88.8 Allergy status to other drugs, medicaments and biological substances; Z79.899 Other long term (current) drug therapy; W00.9XXA Unspecified fall due to ice and snow, initial encounter
CPT/HCPCS: 96372; 99283; J1885; 99282